=== PATIENT | female | born 1970 | race Two or more races ===

== ENCOUNTER → 2016-10-21 | Outpatient (CLI) | payer OTHER ==
--- NOTE | 2016-10-23 10:45 | RAD ---
APPROVED REPORT Test Type: Exercise Stress Nurse/Tech: Bhumika Pichardo R.N. Test Indications: l sided chest pressure Cardiac History: smoker, dm Medications: see ehr Medical History: see ehr Resting ECG: SR Resting Heart Rate: 67 bpm Resting Blood Pressure: 133/71mmHg Pretest Chest Pain: No chest pain Nurse/Tech Notes lungs cta, heart tones regular, good radial pulse Consent: The procedure was explained to the patient in lay terms. Informed consent was witnessed. Nicolás eout was entered into [employer]. History and Stress Test performed by Bhumika Pichardo R.N. Stress Symptoms No chest pain or symptoms.Fatigue POST EXERCISE Reason for Termination: Reached target heart rate Target HR: Yes Max HR: 157 bpm 91% of Maximum Predicted HR: 172 bpm Exercise duration: 10;54 min:sec, 4 Stage Exercise capacity: 13.4METs Max Blood Pressure: 138/68mmHg Blood Pressure response to exercise: Normal blood pressure response during stress. Heart Rate response to exercise: NORMAL Chest Pain: No. Arrhythmia: No. ST Change: Yes. ST seemed elevated at beginning of test, did not worsen, resolved with recovery Imaging Protocol IMAGE PROTOCOL: Rest Tc-99m/stress Tc-99m 1 day Rest: Stress: Viability: Radiopharm.Tc99m [id number] Sestamibi Dose11.6mCi 33mCi Duration 15min. 10min. Img Date 10/21/2016 10/21/2016 Inj-Img [id number]. 60min. Post-Injection Exercise: 1 minute Rest Admin Site:IV - Right AntecubitalAdministrator:YAMINI Krishna Stress Admin Site: IV - Right AntecubitalAdministrator: Domingo Wood, RT (R)(N) STRESS DATA End Diast. Vol.69.0mlAv. Heart Rate77.0bpm End Syst. Vol.13.0mlCO Index BSA0.0L/min Myocardial Ksza261.0gEject. Efsogwuk43.0% Stress Rates Pk. Fill Rate4.54EDV/secLVtime Pk. Fill 197.10msec Pk. Empty Rate4.58ESV/secLVtime Pk. Xgzxn528.82msec 08/12 Pk. Fill1.25EDV/sec Stress Scores Regional WT0.00Summed WT1.00 Regional WM0.00Summed WM0.00 LV Perf. Quant 17 Seg. SSS0.00 17 Seg. SRS0.00 17 Seg. SDS0.00 Stress Defect Extent (% LAD)0.00Rest Defect Extent (% LAD)0.00Rev. Defect Extent (% LAD)0.00 Stress Defect Extent (% LCX) 0.00Rest Defect Extent (% LCX)0.00Rev. Defect Extent (% LCX)0.00 Stress Defect Extent (% RCA)0.00Rest Defect Extent (% RCA)0.00Rev. Defect Extent (% RCA)0.00 Stress Defect Extent (% ISABELLE)0.00Rest Defect Extent (% ISABELLE)0.00Rev. Defect Extent (% ISABELLE)0.00 Conclusion 1. Excercised patient on the Juan protocol for a total of 11 minutes, attaining a heart rate of 90 % of the maximum predicted heart rate for age. 2. There was no chest pain. There were no arrhythmias. There were no ST segment changes suggestive of myocardial ischemia. 3. No perfusion defects seen to suggest myocardial ischemia or scar. 4. Normal wall motion and wall thickening with an ejection fraction of 80%. 5. Scan indicates low risk for future cardiac events and an excellent exercise tolerance for age.
== END | disposition home or self-care (01) ==
LOC: NM 12:55
PROVIDERS: ATTEND Internal Medicine Cardiovascular Disease
DX: R94.31 Abnormal electrocardiogram [ECG] [EKG] (principal); R01.1 Cardiac murmur, unspecified; R07.9 Chest pain, unspecified
CPT/HCPCS: 78452; 93017; 96374; 96375; 96376; A9500

== ENCOUNTER 2017-05-10 13:21 | Emergency (ER) | payer OTHER ==
[~2017-05-10] VITALS: Ht 167.6 cm; Wt 83.0 kg
[2017-05-10 14:19] VITALS: BP 138/75
--- NOTE | 2017-05-10 14:22 | PHYS DOC ---
Adult General Chief Complaint Chief Complaint: FOOT INJURY PAIN HPI HPI Patient is a 46 year old female presents to the emergency department stating that she stepped on a nail yesterday. She states she presents her to the emergency department for a tetanus shot. Patient does state that she is an insulin-dependent diabetic. She states that she had pulled the nail out herself. She is not complaining of any pain or discomfort no drainage or discharge noted from the area. Review of Systems Review of Systems Constitutional: Denies fever or chills [] Eyes: Denies change in visual acuity, redness, or eye pain [] HENT: Denies nasal congestion or sore throat [] Respiratory: Denies cough or shortness of breath [] Cardiovascular: No additional information not addressed in HPI [] GI: Denies abdominal pain, nausea, vomiting, bloody stools or diarrhea [] : Denies dysuria or hematuria [] Musculoskeletal: Denies back pain or joint pain. States that she stepped on a nail yesterday in her left foot. Integument: Denies rash or skin lesions [] Neurologic: Denies headache, focal weakness or sensory changes [] Endocrine: Denies polyuria or polydipsia [] Current Medications Current Medications Current Medications Medications (Trade) Dose Ordered Sig/Angélica Start Time Stop Time Status Last Admin Dose Admin Diphtheria/ Tetanus/Acell Pertussis (Boostrix) 0.5 ml ONCE ONCE 05/10/17 14:30 05/10/17 14:31 DC 05/10/17 14:32 0.5 ML Allergies Allergies Allergies Coded Allergies Type Severity Reaction Last Updated Verified No Known Drug Allergies 05/10/17 No Physical Exam Physical Exam Constitutional: Well developed, well nourished, no acute distress, non-toxic appearance. [] HENT: Normocephalic, atraumatic, bilateral external ears normal, oropharynx moist, no oral exudates, nose normal. [] Eyes: PERRLA, EOMI, conjunctiva normal, no discharge. [] Neck: Normal range of motion, no tenderness, supple, no stridor. [] Cardiovascular:Heart rate regular rhythm, no murmur [] Lungs & Thorax: Bilateral breath sounds clear to auscultation [] Abdomen: Bowel sounds normal, soft, no tenderness, no masses, no pulsatile masses. [] Skin: Warm, dry, no erythema, no rash. Puncture wound noted at the 1st mesotarsal area Extremities: No tenderness, no cyanosis, no clubbing, ROM intact, no edema. [] Neurologic: Alert and oriented X 3, normal motor function, normal sensory function, no focal deficits noted. [] Psychologic: Affect normal, judgement normal, mood normal. [] Current Patient Data Vital Signs Vital Signs Date Time Temp Pulse Resp B/P (MAP) Pulse Ox O2 Delivery O2 Flow Rate FiO2 05/10/17 14:19 98.0 70 16 99 Room Air 98.0 EKG EKG [] Radiology/Procedures Radiology/Procedures [][facility] [address] [place], [place] [id number] IMAGING REPORT Signed PATIENT: CODI LOCKWOOD ACCOUNT: [id number] : 1970 LOCATION: ER AGE: 46 SEX: F EXAM STATUS: REG ER ORD. PHYSICIAN: SKYLAR GONZALEZ APRN REASON: stepped on a nail yesterday PROCEDURE: FOOT LEFT 3V Left foot 3 views. History: Stepped on a nail yesterday 3 views were taken of the left foot. There is not evidence of an acute fracture or osseous abnormality. There is no opaque foreign body. Impression: 1. Negative left foot. DICTATED and SIGNED BY: AURA FERMIN MD DATE: 05/10/17 1444 CC: SKYLAR GONZALEZ APRN; NON,STAFF; CODI SILVER MD ~ Course & Med Decision Making Course & Med Decision Making Pertinent Labs and Imaging studies reviewed. (See chart for details) Patient's x-ray was negative for any abnormality. Her foot, left was soaked in Betadine and water. Patient was updated with a tetanus immunization. Recommended patient to do warm Epsom salts 2-3 times a day. She'll be provided Cipro prescription. Recommended following up with her primary care physician in the next 3-5 days. Signs and symptoms to return back to emergency department as been provided. All questions and concerns been answered at the patient's bedside. Patient agrees with discharge instructions, treatment regimens and follow-up recommendations. [] Dragon Disclaimer Dragon Disclaimer This electronic medical record was generated, in whole or in part, using a voice recognition dictation system. Departure Departure Impression: Primary Impression: Foreign body in left foot Disposition: 01 HOME, SELF-CARE Condition: STABLE Referrals: CODI SILVER MD (PCP) Patient Instructions: Foreign Body-Brief Additional Instructions: Activity as tolerated. Tylenol or ibuprofen for pain and discomfort. Warm Epsom salt soaks 2-3 times a day. Antibiotic as prescribed. Watch for signs and symptoms of infection: Redness, warmth, tenderness or any yellow/greenish that might become from the site. Follow-up to primary care physician in the next 3-5 days. Return back to emergency prior signs and symptoms of become worse. Scripts Ciprofloxacin Hcl (CIPRO) 500 Mg Tablet 1 TAB PO BID, #14 TAB Prov: SKYLAR GONZALEZ APRN 05/10/17 Problem Qualifiers Primary Impression: Foreign body in left foot Encounter type: initial encounter Qualified Codes: S90.852A - Superficial foreign body, left foot, initial encounter SKYLAR GONZALEZ APRN May 10, 2017 14:22
[2017-05-10] MEDS: DIPHTH,PERTUSS(ACELL),TET TOX 0.5 ML DISP.SYRIN. VAX IM ONE (14:32)
--- NOTE | 2017-05-10 14:48 | RAD ---
Left foot 3 views. History: Stepped on a nail yesterday 3 views were taken of the left foot. There is not evidence of an acute fracture or osseous abnormality. There is no opaque foreign body. Impression: 1. Negative left foot.
[2017-05-10] MEDS ORDERED: CIPR500T94 PO (15:01)
== END 2017-05-10 15:15 | disposition home or self-care (01) ==
LOC: ER 13:21
DX: S90.852A Superficial foreign body, left foot, initial encounter (principal); E10.9 Type 1 diabetes mellitus without complications; W45.8XXA Other foreign body or object entering through skin, initial encounter; Y93.89 Activity, other specified; Y99.8 Other external cause status; Y92.89 Other specified places as the place of occurrence of the external cause
CPT/HCPCS: 73630; 90471; 90715; 99284-25